=== PATIENT | male | born 1960 | race Caucasian/White ===

== ENCOUNTER 2022-09-18 09:00 | Day surgery (SDC) | payer OTHER ==
[2022-09-13 14:21] LABS: BASOPHILS # (AUTO) 0.1 X10'3 (0-0.2); BASOPHILS % (AUTO) 1.6 % (0-1); EOSINOPHILS # (AUTO) 0.2 X10'3 (0-0.9); EOSINOPHILS % (AUTO) 3.6 % (0-6); LYMPHOCYTES # (AUTO) 1.4 X10'3 (1.1-4.8); LYMPHOCYTES % (AUTO) 28.2 % (21-51); MEAN CORPUSCULAR HEMOGLOBIN 28.3 PG (27.0-31.0); MEAN CORPUSCULAR HGB CONC 33.2 g/dL (33.0-36.5); MEAN CORPUSCULAR VOLUME 85.2 FL (78-98); MONOCYTES # (AUTO) 0.4 X10'3 (0-0.9); MONOCYTES % (AUTO) 7.2 % (2-12); NEUTROPHILS % (AUTO) 59.4 % (42-75); PRE OP HEMATOCRIT 40.7 % (42.0-52.0); PRE OP HEMOGLOBIN 13.5 g/dL (14.0-17.9); PRE OP PLATELET COUNT 195 X10'3 (140-440); RED BLOOD COUNT 4.78 X10'6 (4.70-6.10); RED CELL DISTRIBUTION WIDTH 13.6 % (11.5-14.5)
[2022-09-13 14:35] LABS: ALBUMIN 3.9 G/DL (3.4-5.0); ALBUMIN/GLOBULIN RATIO 1.3 (1.1-1.5); ALKALINE PHOSPHATASE 55 IU/L (46-116); BLOOD UREA NITROGEN 18 MG/DL (7-18); BUN/CREATININE RATIO 21.4 (5.4-32.0); CALCIUM 9.2 MG/DL (8.5-10.1); CHLORIDE 104 MMOL/L (99-107); CREATININE 0.84 MG/DL (0.60-1.10); PRE OP ALT 29 U/L (30-65); PRE OP ANION GAP 6 (8-16); PRE OP AST 15 U/L (10-37); PRE OP BILIRUB, TOTAL 0.2 MG/DL (0.0-1.0); PRE OP GLUCOSE 109 MG/DL (70-104); PRE OP SODIUM 139 MMOL/L (135-145); TOTAL CARBON DIOXIDE 29.2 MMOL/L (24-32); eGFR > 90 ML/MIN
[~2022-09-18] VITALS: Ht 175.3 cm; Wt 78.6 kg
[2022-09-18] VITALS (7 sets, daily range): BP systolic 114–132; BP diastolic 70–85
[~2022-09-18 09:00] MED LIST: METF-1203 PO; ceFAZolin inj. 2,000 MG in dextrose 5%-water 100 ML IV ONE; famotidine 20mg tablet PO ONE; ringers solution, lacted 1,000 ML IV SCH
[2022-09-18] MEDS ORDERED: fentaNYL/PF 50MCG/1 ML 2ML syringe ONE ×2 (12:52→13:46)
[2022-09-18] MEDS ORDERED: midazolam 1 mg/ML 2ml injection ONE (12:53)
[2022-09-18] MEDS ORDERED: morphine 4 MG/ML inj SYRINge IV PRN (13:00)
[2022-09-18] MEDS ORDERED: proCHLORperazine 10 MG/2 ml inj IV PRN (13:00)
[2022-09-18] MEDS ORDERED: ondansetron/PF 4mg/2ml inj IV PRN (13:00)
[2022-09-18] MEDS ORDERED: ringers solution, lacted 1,000 ML IV SCH (13:00)
[2022-09-18] MEDS ORDERED: meperidine/PF 25mg/ml syringe IV PRN ×2 (13:00)
[2022-09-18] MEDS ORDERED: morphine 2 MG/ML inj. syringe IV PRN (13:00)
[2022-09-18] MEDS ORDERED: ROPIVAcaine 0.5% (5mg/ml) 30ml vial ONE (13:02)
[2022-09-18] MEDS ORDERED: sevoflurane 250ml liquid IH ONE (13:10)
[2022-09-18] MEDS ORDERED: dexamethasone sod phosphate 4mg/ml inj. ONE (13:42)
[2022-09-18] MEDS ORDERED: LIDOcaine 1%/PF 5ML 10 MG/ML VIAL ONE (13:42)
[2022-09-18] MEDS ORDERED: ondansetron/PF 4mg/2ml inj ONE (13:42)
[2022-09-18] MEDS ORDERED: propofol inj 20 ML IV ONE (13:42)
[2022-09-18] MEDS ORDERED: glycopyrrolate 0.2mg/ml inj ONE (14:03)
--- NOTE | 2022-09-18 14:08 | NUR ---
Received from OR via [facility], accompanied by Anesthesiologist DR BUENO and report given by Anesthesiologist. PT UNRESPONSIVE. ET TUBE IN PLACE- BREATHING ON HIS OWN WITH VSS. RIGHT PEDAL PULSE STRONG, RT KNEE NED WRAPS C/D/I/. IV PATENT WITH LR @ 100MLS/HR. Addendum: 09/18/22 at 1426 by Ana Maria Garza RN Amended: Links added.
--- NOTE | 2022-09-18 14:22 | NUR ---
PT AWAKE, LMA REMOVED. VSS. CONVERSING. CSM'S WNL.
[2022-09-18] MEDS ORDERED: HYDROcodone/acetaminophen 10/325mg tab PO ONE (14:40)
[2022-09-18] MEDS: meperidine/PF 25mg/ml syringe IV PRN ×2 (14:43→14:50)
--- NOTE | 2022-09-18 15:08 | NUR ---
STATES DECREASING\ADEQUATE PAIN RELIEF. RIGHT KNEE NED WRAPS C/D/I. IV DC'D WITH CANNULA INTACT. CSM'S TO RT LE WNL. PT STATES HAS CRUTCHES AT HOME. DENIES URGE TO VOID. STATES READINESS TO DC HOME WHEN ASKED. DC INSTRUCTIONS REVIEWED. DC HOME VIA W/C TO PVT AUTO WITH TO RECEIVE. Addendum: 09/18/22 at 1533 by Ana Maria Garza RN Amended: Links added.
== END 2022-09-18 15:18 | disposition home or self-care (01) ==
LOC: PAS 09:00
PROVIDERS: ATTEND Orthopaedic Surgery
DX: S83.241A Other tear of medial meniscus, current injury, right knee, initial encounter (principal); M17.11 Unilateral primary osteoarthritis, right knee; G47.30 Sleep apnea, unspecified; E11.9 Type 2 diabetes mellitus without complications; Z79.84 Long term (current) use of oral hypoglycemic drugs; Z98.890 Other specified postprocedural states; X58.XXXA Exposure to other specified factors, initial encounter; Y93.89 Activity, other specified; Y92.89 Other specified places as the place of occurrence of the external cause; Y99.8 Other external cause status
CPT/HCPCS: 29881; 36415; 80053; 82948; 85025; J0690; J1100; J2175; J2250; J2405; J2704; J2795; J3010; J3490; J7060; J7120; Z7506; Z7512; A4215; A4618; A6449; A7000